=== PATIENT | male | born 1985 | race Caucasian/White ===

== ENCOUNTER 2016-10-26 17:24 | Emergency (ER) | payer SELFPAY ==
[~2016-10-26] VITALS: Ht 167.6 cm; Wt 68.5 kg
[2016-10-26] MEDS ORDERED: KETOROLAC 60MG/2ML VIAL IM ONE (19:00)
[2016-10-26 19:12] LABS: HEMATOCRIT 43.4 % (42.0-52.0); MEAN CORPUSCULAR VOLUME 92.7 fL (80.0-94.0); PLATELET 271 x1000/uL (130-400); RED BLOOD CELL COUNT 4.68 mill/uL (4.7-6.1); RED CELL DISTRIBUTION WIDTH 14.6 % (11.6-14.6)
[2016-10-26 19:13] LABS: GLUCOSE URINE NEGATIVE (NEGATIVE); KETONES URINE TRACE (NEGATIVE); LEUKOCYTE ESTERASE URINE NEGATIVE (NEGATIVE); NITRITE URINE NEGATIVE (NEGATIVE); OCCULT BLOOD URINE NEGATIVE (NEGATIVE); PH URINE 6.5 (4.5-8.0); PROTEIN URINE NEGATIVE (NEGATIVE); SPECIFIC GRAVITY URINE 1.018 (1.005-1.030)
[2016-10-26 19:16] LABS: CLARITY URINE CLEAR (CLEAR); COLOR URINE YELLOW (YELLOW)
[2016-10-26 19:23] LABS: CARBON DIOXIDE 30 mEq/L (21-32); CHLORIDE 101 mEq/L (98-107)
[2016-10-26] MEDS ORDERED: KETOROLAC 30MG/ML VIAL IV ONE (20:00)
[2016-10-26] MEDS ORDERED: SODIUM CHLORIDE 0.9% 100 ML IV ONE (20:00)
[2016-10-26 22:51] VITALS: BP 127/76
== END 2016-10-26 23:04 | disposition home or self-care (01) ==
LOC: ER 20:01
DX: R51 Headache (principal); R06.02 Shortness of breath; R00.2 Palpitations; F17.200 Nicotine dependence, unspecified, uncomplicated
CPT/HCPCS: 36415; 80048; 81003; 84484; 85027; 93005; 96361; 96374; 99285; J1885; J7030; J7050